=== PATIENT | female | born 1965 | race Caucasian/White ===

== ENCOUNTER 2024-05-19 06:25 | Emergency (ER) | payer SELFPAY ==
[2024-05-19 06:50] VITALS: BP 132/72; PULSE 82; RESP 18
[2024-05-19 06:54] VITALS: BMI 24.1
[2024-05-19] MEDS ORDERED: ACETAMINOPHEN 500 MG TABLET (FP) ONE (07:58)
[2024-05-19] MEDS ORDERED: traMADol HCL 50 MG TABLET ONE (07:58)
[2024-05-19] MEDS: traMADol HCL 50 MG TABLET PO ONE (08:02)
[2024-05-19] MEDS: ACETAMINOPHEN 500 MG TABLET (FP) PO ONE (08:02)
== END 2024-05-19 09:30 | disposition home or self-care (01) ==
LOC: JERFT 06:25 → JER 06:25 → JERFT 09:30
DX: M54.2 Cervicalgia (principal); R07.81 Pleurodynia; G89.29 Other chronic pain
CPT/HCPCS: 71101-TC-RT-FY; 99283-25